=== PATIENT | female | born 1985 | race Caucasian/White ===

== ENCOUNTER 2019-02-24 09:19 | Emergency (ER) | payer OTHER ==
[2019-02-24 09:27] VITALS: TEMP 97.9; BMI 24.9
--- NOTE | 2019-02-24 09:55 | PDOC ---
History of Present Illness - General History Source: Patient Exam Limitations: No Limitations <Haritha Lucio - Last Filed: 02/24/19 13:11> <Mike Rivera - Last Filed: 02/24/19 17:35> - General Chief Complaint: Pain, Acute Stated Complaint: PELVIS PAIN Time Seen by Provider: 02/24/19 09:54 Past History - Travel Traveled outside of the country in the last 30 days: No Close contact w/someone who was outside of country & ill: No - Past Medical History Asthma: No Cancer: No Cardiac Disorders: No Diabetes: No HTN: No Seizures: No Thyroid Disease: No - Psycho Social/Smoking Cessation Hx Smoking History: Never smoked Have you smoked in the past 12 months: No Hx Alcohol Use: No Drug/Substance Use Hx: No Hx Substance Use Treatment: No <Haritha Lucio - Last Filed: 02/24/19 13:11> <Mike Rivera - Last Filed: 02/24/19 17:35> - Past Medical History Allergies/Adverse Reactions: Allergies Allergy/AdvReac Type Severity Reaction Status Date / Time loratadine [From Claritin] Allergy tachycardia Verified 02/24/19 09:22 Home Medications: Ambulatory Orders Acetaminophen [Tylenol .Regular Strength -] 650 mg PO Q4H PRN #1 tablet Ergocalciferol [Vitamin D2] 50,000 unit PO Q7D@1000 02/24/19 Fluconazole 100 mg PO ASDIR #2 tablet 02/24/19 Metoclopramide HCl [Reglan] 5 mg PO AC 02/24/19 Norgestimate-Ethinyl Estradiol [Sprintec 28 Day Tablet] 1 tab PO ASDIR 02/24/19 Review of Systems - Review of Systems Able to Perform ROS?: Yes Comments:: 02/24/19 09:57 CONSTITUTIONAL: Absent: fever, chills, diaphoresis, generalized weakness, malaise, loss of appetite HEENT: Absent: rhinorrhea, nasal congestion, throat pain, throat swelling, difficulty swallowing, mouth swelling, ear pain, eye pain, visual Changes CARDIOVASCULAR: Absent: chest pain, loss of consciousness, palpitations, irregular heart rate, peripheral edema RESPIRATORY: Absent: cough, shortness of breath, dyspnea with exertion, orthopnea, wheezing, stridor, hemoptysis GASTROINTESTINAL: Present: abdominal pain Absent: abdominal distension, nausea, vomiting, diarrhea , constipation, melena, hematochezia GENITOURINARY: Absent: dysuria, frequency, urgency, hesitancy, hematuria, flank pain, genital pain MUSCULOSKELETAL: Absent: myalgia, arthralgia, joint swelling SKIN: Absent: rash, itching, pallor HEMATOLOGIC/IMMUNOLOGIC: Absent: easy bleeding, easy bruising, lymphadenopathy, frequent infections ENDOCRINE: Absent: unexplained weight gain, unexplained weight loss, heat intolerance, cold intolerance NEUROLOGIC: Absent: headache, focal weakness or paresthesias, dizziness, unsteady gait, seizure, mental status changes, bladder or bowel incontinence PSYCHIATRIC: Absent: anxiety, depression, suicidal or homicidal ideation, hallucinations. Is the patient limited Tajik proficient: No <Haritha Lucio - Last Filed: 02/24/19 13:11> *Physical Exam - Vital Signs Last Vital Signs Temp Pulse Resp BP Pulse Ox 97.9 F 85 20 120/66 100 02/24/19 09:25 02/24/19 09:25 02/24/19 09:25 02/24/19 09:25 02/24/19 09:25 - Physical Exam 02/24/19 09:57 GENERAL: Well developed, well nourished. Awake and alert. No acute distress. HEENT: Normocephalic, atraumatic. PERRLA, EOMI. No conjunctival pallor. Sclera are non- icteric. Moist mucous membranes. Oropharynx is clear. NECK: Supple. Full ROM. No JVD. Carotid pulses 2+ and symmetric, without bruits. No thyromegaly. No lymphadenopathy. CARDIOVASCULAR: Regular rate and rhythm. No murmurs, rubs, or gallops. Distal pulses are 2+ and symmetric. PULMONARY: No evidence of respiratory distress. Lungs clear to auscultation bilaterally. No wheezing, rales or rhonchi. ABDOMINAL: TTP of the suprapubic area/LLQ. Soft. Non-tender. Non-distended. No rebound or guarding. No organomegaly. Normoactive bowel sounds. MUSCULOSKELETAL Normal range of motion at all joints. No bony deformities or tenderness. No CVA tenderness. EXTREMITIES: No cyanosis. No clubbing. No edema. No calf tenderness. SKIN: Warm and dry. Normal capillary refill. No rashes. No jaundice. NEUROLOGICAL: Alert, awake, appropriate. Cranial nerves 2-12 intact. No deficits to light touch and temperature in face, upper extremities and lower extremities. No motor deficits in the in face, upper extremities and lower extremities. Normoreflexic in the upper and lower extremities. Normal speech. Toes are down- going bilaterally. Gait is normal without ataxia. PSYCHIATRIC: Cooperative. Good eye contact. Appropriate mood and affect. <Haritha Lucio - Last Filed: 02/24/19 13:11> - Vital Signs Last Vital Signs Temp Pulse Resp BP Pulse Ox 97.9 F 79 16 110/71 100 02/24/19 14:36 02/24/19 14:36 02/24/19 14:36 02/24/19 14:36 02/24/19 14:36 <Mike Rivera - Last Filed: 02/24/19 17:35> ED Treatment Course - LABORATORY CBC & Chemistry Diagram: 02/24/19 10:30 02/24/19 10:13 <Haritha Lucio - Last Filed: 02/24/19 13:11> - LABORATORY CBC & Chemistry Diagram: 02/24/19 10:30 02/24/19 10:13 - ADDITIONAL ORDERS Additional order review: Laboratory Results 02/24/19 02/24/19 02/24/19 10:30 10:30 10:13 Sodium 138 Potassium 4.5 Chloride 106 Carbon Dioxide 27 Anion Gap 5 L BUN 12.3 Creatinine 0.8 Est GFR (CKD-EPI)AfAm 112.27 Est GFR (CKD-EPI)NonAf 96.87 Random Glucose 88 Calcium 9.4 Total Bilirubin 0.2 AST 21 ALT 30 Alkaline Phosphatase 78 Total Protein 7.2 Albumin 3.6 Urine Color Yellow Urine Appearance Clear Urine pH 8.0 Ur Specific Mage[place] 1.017 Urine Protein Negative Urine Glucose (UA) Negative Urine Ketones Negative Urine Blood Negative Urine Nitrite Negative Urine Bilirubin Negative Urine Urobilinogen 0.2 Ur Leukocyte Esterase Negative Urine HCG, Qual Negative 02/24/19 11:35 Gram Stain - Final Cervix 02/24/19 10:30 RBC 4.13 MCV 88.6 MCHC 33.4 RDW 13.3 D MPV 8.1 Neutrophils % 59.4 D Lymphocytes % 32.1 D Monocytes % 6.9 Eosinophils % 1.1 Basophils % 0.5 - Medications Given in the ED: ED Medications Discontinued Medications Generic Name Dose Route Start Last Admin Trade Name Lex PRN Reason Stop Dose Admin Acetaminophen 1,000 mg 02/24/19 09:56 02/24/19 10:30 Ofirmev Injection - IVPB 02/24/19 09:57 1,000 mg ONCE ONE Administration Azithromycin 1,000 mg 02/24/19 13:13 02/24/19 13:45 Zithromax PO 02/24/19 13:14 1,000 mg ONCE ONE Administration Ceftriaxone Sodium 250 mg 02/24/19 13:13 02/24/19 14:35 Rocephin - IM 02/24/19 13:14 250 mg ONCE ONE Administration Sodium Chloride 1,000 mls @ 1,000 mls/hr 02/24/19 09:56 02/24/19 10:30 Normal Saline - IV 02/24/19 10:55 1,000 mls/hr ASDIR STA Administration <Mike Rivera - Last Filed: 02/24/19 17:35> Medical Decision Making - Medical Decision Making 02/24/19 10:02 The patient is a 33-year-old female past medical history of endometriosis, hernia?, Who presents to the ER today for lower abdominal pain. She states that the pain is been going on for 2 weeks however it increased in severity over the last 2 days. She states that the pain is sharp and consistent, and she notes that it is right over her bladder. She states her last menstrual cycle was 02/10/19. She has been taking acetaminophen at home with some relief of her symptoms. Denies fevers, chills, nausea, vomiting, dysuria, hematuria, vaginal bleeding and discharge. A/P: Abdominal pain On exam patient tenderness palpation of the suprapubic/left lower quadrant areas. No rebound or guarding. Differential diagnosis includes but is not limited to ovarian cyst, endometriosis flare, diverticulitis, UTI, stone, hernia, , STI, cervicitis, pelvic exam Basic labs, urine, IV fluids, IV Tylenol ordered Transvaginal ultrasound Reevaluate 02/24/19 13:11 Room in [facility] opened up to do pelvic exam. Pelvic: External genitalia normal without lesions. Vaginal vault is with grayish clear discharge with yeast like particles. Cervix is long and closed. (+) cervical motion tenderness. Uterus is nontender and normal in size. Bilateral adnexal tenderness without masses. Transvaginal ultrasound shows bilateral cysts. There is no ovarian torsion. Cysts are small at 1.8 x 1.8 x 1.8 cm on the left and 1.7 x 1.6 x 1.8 on the right. Given cervical motion tenderness will treat for STDs prophylactically, culture sent. Patient also with a yeast noted in the vaginal vault. Will treat with fluconazole Patient to follow-up with her primary care doctor and [facility] Discharge home I discussed the physical exam findings, ancillary test results and final diagnoses with the patient. I answered all of the patient's questions. The patient was satisfied with the care received and felt comfortable with the discharge plan and treatment plan. The Patient agrees to follow up with the primary care physician/specialist within 24-72 hours. Return precautions were given. <Haritha Lucio - Last Filed: 02/24/19 13:11> - Medical Decision Making 02/24/19 17:35 I reviewed the case of the mid-level practitioner and was available for consultation while in the emergency department <Mike Rivera - Last Filed: 02/24/19 17:35> Discharge - Discharge Information Problems reviewed: Yes - Admission No <Haritha Lucio - Last Filed: 02/24/19 13:11> <Mike Rivera - Last Filed: 02/24/19 17:35> - Discharge Information Clinical Impression/Diagnosis: Cervicitis Ovarian cyst Qualifiers: Laterality: bilateral Qualified Code(s): N83.201 - Unspecified ovarian cyst, right side Condition: Stable Disposition: HOME - Additional Discharge Information Prescriptions: Fluconazole 100 mg PO ASDIR #2 tablet - Follow up/Referral Referrals: Lenny Tejeda MD [Primary Care Provider] - - Patient Discharge Instructions Patient Printed Discharge Instructions: DI for Ovarian Cyst Additional Instructions: You were seen today for your pelvic pain. It is most likely due to ovarian cysts and a vaginal infection. Please take the fluconazole starting tomorrow and take it as directed. Please take the acetaminophen that was previously prescribed to you as directed Follow-up with your [facility] as planned for March 14. If your symptoms get worse please call them for a sooner appointment. Return to the ER for worsening symptoms, fever, vomiting or if you have any changes in your symptoms. Te vieron hoy por tu dolor plvico. Lo ms probable es que se deba a quistes ovricos y serafin infeccin vaginal. Tuttle el fluconazol a partir de maana y tmelo segn las indicaciones. Tuttle el acetaminofeno que le recetaron previamente segn las indicaciones. Nimo un seguimiento con morris obstetra / gineclogo segn lo previsto para el . Si dorota sntomas empeoran, llmelos para serafin loco ms pronto. Regrese a la adryan de emergencias para empeorar los sntomas, fiebre, vmitos o si tiene algn cambio en dorota sntomas. Print Language: DIVEHI - Post Discharge Activity Work/Back to School Note: Back to Work
[2019-02-24] MEDS ORDERED: SODIUM CHLORIDE 1,000 ML IV STA (09:56)
[2019-02-24] MEDS ORDERED: ACETAMINOPHEN 1000 MG/100 ML VIAL (NON FORMULARY) IVPB ONE (09:56)
[2019-02-24] MEDS ORDERED: ACETAMINOPHEN INJECTION 100 ML IVPB ONE (10:16)
[2019-02-24 10:45] LABS: BASO % 0.5 % (0-2.0); EOS % 1.1 % (0-4.5); HEMATOCRIT 36.6 % (32.4-45.2); HEMOGLOBIN 12.2 GM/dL (10.7-15.3); LYMPH % 32.1 % (8-40); MCH 29.6 pg (25.7-33.7); MCHC 33.4 g/dl (32.0-36.0); MEAN CELL VOLUME 88.6 fl (80-96); MEAN PLT VOLUME 8.1 fl (7.5-11.1); MONO % 6.9 % (3.8-10.2); NEUT % 59.4 % (42.8-82.8); PLATELET COUNT 324 K/MM3 (134-434); RBC 4.13 M/mm3 (3.60-5.2); RDW 13.3 % (11.6-15.6); WHITE BLOOD COUNT 7.2 K/mm3 (4.0-10.0)
[2019-02-24 10:47] LABS: URINE APPEARANCE CLEAR; URINE BILIRUBIN NEGATIVE (NEGATIVE); URINE COLOR YELLOW; URINE GLUCOSE (UA) NEGATIVE (NEGATIVE); URINE KETONE NEGATIVE (NEGATIVE); URINE LEUK ESTERASE NEGATIVE (NEGATIVE); URINE NITRITE NEGATIVE (NEGATIVE); URINE PROTEIN NEGATIVE (NEGATIVE); URINE UROBILINOGEN 0.2 mg/dL (0.2-1.0)
[2019-02-24 11:17] LABS: ALBUMIN 3.6 g/dl (3.4-5.0); BILIRUBIN,TOTAL 0.2 mg/dL (0.2-1); BLOOD UREA NITROGEN 12.3 mg/dL (7-18); CALCIUM 9.4 mg/dL (8.5-10.1); CREATININE 0.8 mg/dL (0.55-1.3); POTASSIUM 4.5 mmol/L (3.5-5.1); TOT PROT 7.2 g/dl (6.4-8.2)
[2019-02-24] MEDS ORDERED: AZITHROMYCIN 500 MG TABLET PO ONE (13:13)
[2019-02-24] MEDS ORDERED: cefTRIAXone SODIUM 1 GM VIAL ONE (13:31)
[2019-02-24] MEDS ORDERED: AZITHROMYCIN 250 MG TABLET ONE (13:38)
[2019-02-24 14:37] VITALS: BP 110/71; PULSE 79
== END 2019-02-24 14:37 | disposition home or self-care (01) ==
LOC: JER 09:19
PROC: 3E02329 Introduction of Other Anti-infective into Muscle, Percutaneous Approach (ICD-10-PCS; principal; 2019-02-24)
PROC: 3E033NZ Introduction of Analgesics, Hypnotics, Sedatives into Peripheral Vein, Percutaneous Approach (ICD-10-PCS; 2019-02-24)
DX: N72 Inflammatory disease of cervix uteri (principal); N83.201 Unspecified ovarian cyst, right side; B37.3 Candidiasis of vulva and vagina; N83.202 Unspecified ovarian cyst, left side; Z88.8 Allergy status to other drugs, medicaments and biological substances
CPT/HCPCS: 36415; 76830-TC; 80053; 81003; 84703; 85025; 87070; 87086; 87205; 87491; 87591; 99283-25; J0131; J7030